=== PATIENT | female | born 1990 | race Asian ===

== ENCOUNTER 2020-06-30 21:24 | Emergency (ER) | payer OTHER, SELFPAY ==
[~2020-06-30] VITALS: Ht 157.5 cm; Wt 52.2 kg
[2020-06-30 21:29] VITALS: Ht 157.5 cm; Wt 52.2 kg
[2020-06-30 22:34] LABS: RED CELL DISTRIBUTION WIDTH 12.5 % (12.3-17.7)
[2020-06-30 22:35] LABS: PLATELET COUNT 156 x10^3mcL (179-408)
[2020-06-30 22:42] LABS: CALCIUM 8.7 mg/dL (8.5-10.1); CHLORIDE SERUM 96 mmol/L (98-107); CREATININE SERUM 0.9 mg/dL (0.6-1.0); GFR1 > 60 mL/min; GLUCOSE SERUM 97 mg/dL (74-106); SODIUM SERUM 131 mmol/L (136-145)
[2020-06-30 22:47] LABS: ALBUMIN 4.2 g/dL (3.4-5.0); ALKALINE PHOSPHATASE 46 U/L (46-116); ALT/SGPT 35 U/L (14-59); AST/SGOT 29 U/L (15-37); BILIRUBIN TOTAL 0.3 mg/dL (0.20-1.00); TOTAL PROTEIN, SERUM 7.8 g/dL (6.4-8.2)
[2020-06-30 23:22] LABS: BAND NEUTROPHIL 4 % (0-10); MONOCYTE 10 % (0-7); SEGMENTED NEUTROPHILS 66 % (37-75); rbc morphology (normal/abnorm) NORMAL (NORMAL)
[2020-07-01 02:54] VITALS: BP 109/63
== END 2020-07-01 02:54 | disposition home or self-care (01) ==
LOC: ED 21:24
PROVIDERS: Emergency Medicine
DX: L03.316 Cellulitis of umbilicus (principal); D72.819 Decreased white blood cell count, unspecified; D69.6 Thrombocytopenia, unspecified; Z20.828 Contact with and (suspected) exposure to other viral communicable diseases
CPT/HCPCS: J7030; Q9967; U0003

== ENCOUNTER 2020-07-03 14:14 | Emergency (ER) | payer OTHER ==
[~2020-07-03] VITALS: Ht 160 cm; Wt 54.9 kg
[2020-07-03 14:30] VITALS: Ht 160 cm; Wt 54.9 kg
[2020-07-03 15:09] VITALS: BP 108/74
== END 2020-07-03 15:09 | disposition home or self-care (01) ==
LOC: ED 14:14
DX: L03.316 Cellulitis of umbilicus (principal); Z48.00 Encounter for change or removal of nonsurgical wound dressing